=== PATIENT | female | born 1955 | race Caucasian/White ===

== ENCOUNTER 2018-04-01 09:03 | Emergency (ER) | payer BC ==
[2018-04-01 09:29] LABS: CHLORIDE,CL 105 mEq/L (98-106); SODIUM,NA 142 mEq/L (136-145)
[2018-04-01 09:38] VITALS: BP 144/86
--- NOTE | 2018-04-01 10:40 | EDM.PDOC ---
ED HPI GENERAL MEDICAL PROBLEM - General Chief Complaint: Neuro Symptoms/Deficits Stated Complaint: SCOTT, R) facial droop, R) eye twitching Time Seen by Provider: 04/01/18 09:12 Source of Information: Reports: Patient History Limitations: Reports: No Limitations - History of Present Illness INITIAL COMMENTS - FREE TEXT/NARRATIVE: Radha is a 63 yo female who presents to the ER after recommendation from co- workers with concerns of stroke like symptoms. Lucia states she started developing a headache to the right lower/posterior aspect of her head/neck on Friday night. She admits she wasn't able to get some sleep till around 4:00am after taking Tylenol and ibuprofen. She states she woke up yesterday morning with still ongoing headache. She went to work and ended up going home as the headache intensified. She was able to sleep from around noon till about 4:30 in the afternoon. She feels it did give her some relief and this morning the headache was a lot better. Co-workers noticed this morning she had a little bit of right sided drooping of lips. She admits her right eye has been watering a little bit as well and will twitch on occasion. She otherwise denies any unsteady gait, unilateral or bilateral upper or lower extremity weakness. Denies any confusion, loss of memory or any other neurological symptoms. States she has been under a lot of stress lately with her youngest son going thru a divorce. Location: Reports: Head Associated Symptoms: Reports: Headaches. Denies: Confusion, Fever/Chills, Nausea/Vomiting Treatments BAKER PASTRY: Reports: Acetaminophen, NSAIDS Headache Pain Score (Numeric/FACES): 3 - Related Data Allergies Allergy/AdvReac Type Severity Reaction Status Date / Time cefadroxil [From Duricef] Allergy Cannot Verified 04/01/18 09:03 Remember clarithromycin [From Biaxin] Allergy Cannot Verified 04/01/18 09:25 Remember codeine Allergy Cannot Verified 04/01/18 09:03 Remember Home Meds: Home Meds Inulin/Chromium Picolinate [Fiber Gummies] 1 tab PO DAILY 07/31/16 [History] Cholecalciferol (Vitamin D3) [Vitamin D3] 1,000 unit PO DAILY 08/02/16 [History] predniSONE [Prednisone] 40 mg PO DAILY 5 Days #10 tablet 04/01/18 [Rx] valACYclovir [Valtrex] 1,000 mg PO BID 7 Days #14 tablet 04/01/18 [Rx] Past Medical History HEENT History: Reports: Sinusitis Cardiovascular History: Reports: High Cholesterol Genitourinary History: Reports: Other (See Below) Other Genitourinary History: nocturia Musculoskeletal History: Reports: Arthritis, Other (See Below) Other Musculoskeletal History: osteopenia Endocrine/Metabolic History: Reports: Vitamin D Deficiency - Past Surgical History HEENT Surgical History: Reports: Tonsillectomy GI Surgical History: Reports: Cholecystectomy Female Surgical History: Reports: Hysterectomy, Tubal Ligation Oncologic Surgical History: Reports: Lumpectomy Social & Family History - Tobacco Use Smoking Status *Q: Never Smoker - Recreational Drug Use Recreational Drug Use: No ED ROS GENERAL - Review of Systems Review Of Systems: See Below Constitutional: Denies: Fever, Chills, Weakness HEENT: Reports: Eye Discharge (watering). Denies: Eye Pain, Sinus Problem, Vision Change Respiratory: Reports: No Symptoms Cardiovascular: Reports: No Symptoms GI/Abdominal: Reports: No Symptoms : Reports: No Symptoms Musculoskeletal: Reports: Neck Pain (chronic neck pain with calcifications). Denies: Muscle Stiffness Skin: Reports: No Symptoms. Denies: Rash Neurological: Reports: Headache. Denies: Confusion, Dizziness, Numbness, Paresthesia, Seizure, Tingling, Trouble Speaking, Difficulty Walking, Weakness, Change in Speech, Gait Disturbance ED EXAM, NEURO - Physical Exam Exam: See Below Exam Limited By: No Limitations General Appearance: Alert, No Apparent Distress Eye Exam: Right Eye: Other (right eye lid not completely closing), Bilateral Eye : EOMI, PERRL Ears: Normal External Exam, Normal Canal, Hearing Grossly Normal, Normal TMs Nose: Normal Inspection, Normal Mucosa, No Blood Throat/Mouth: Normal Inspection, Normal Lips, Normal Teeth, Normal Gums, Normal Oropharynx, Normal Voice, No Airway Compromise Head Exam: Atraumatic, Normocephalic Neck: Normal Inspection, Supple Respiratory/Chest: No Respiratory Distress, Lungs Clear, Normal Breath Sounds, No Accessory Muscle Use Cardiovascular: Normal Peripheral Pulses, Regular Rate, Rhythm, No Edema, No Murmur Neurological: Alert, Normal Mood/Affect, Oriented x 3, Other (slight drooping of right lip; diminished wrinkling of right forehead. No slurred speech. No extremity weakness. CN otherwise grossly intact. ). No: Abnormal Gait, Abnormal Sensation Extremities: Normal Inspection, Non-Tender, No Pedal Edema, Normal Capillary Refill Psychiatric: Normal Affect, Normal Mood Skin Exam: Warm, Dry, Intact, Normal Color, No Rash Course - Vital Signs Last Recorded V/S: Last Vital Signs Temp 97.1 F 04/01/18 09:06 Pulse 68 04/01/18 09:37 Resp 20 04/01/18 09:37 BP 144/86 H 04/01/18 09:37 Pulse Ox 98 04/01/18 09:37 - Orders/Labs/Meds Orders: Active Orders 24 hr Category Date Time Status Head wo Cont [CT] Stat Exams 04/01/18 08:59 Taken Labs: Laboratory Tests 04/01/18 04/01/18 04/01/18 Range/Units 09:10 09:10 09:10 WBC 5.3 (5.0-10.0) 10^3/uL RBC 4.29 (4.00-5.50) 10^6/uL Hgb 13.3 (12.0-16.0) g/dL Hct 40.2 (37.0-47.0) % MCV 93.7 (82.0-94.0) fL MCH 31.0 (27.0-32.0) pg MCHC 33.1 (33.0-38.0) g/dL RDW Coeff of Barak 12.6 (11.0-15.0) % Plt Count 253 (150-400) 10^3/uL Neut % (Auto) 36.7 (35-85) % Lymph % (Auto) 52.1 (10-55) % [place] % (Auto) 9.3 (0-16) % Eos % (Auto) 1.5 (0-5) % Baso % (Auto) 0.4 (0-3) % Neut # (Auto) 1.94 (1.80-7.00) 10^3/uL Lymph # (Auto) 2.75 (1.00-4.80) 10^3/uL [place] # (Auto) 0.49 (0.00-0.80) 10^3/uL Eos # (Auto) 0.08 (0.00-0.45) 10^3/uL Baso # (Auto) 0.02 10^3/uL PT 9.7 (9.7-12.3) SEC INR 0.93 (0.92-1.18) APTT 25.8 (23.2-32.3) SEC Sodium 142 (136-145) mEq/L Potassium 3.6 (3.5-5.0) mEq/L Chloride 105 (98-106) mEq/L Carbon Dioxide 29 (21-32) mmol/L BUN 18 (7-18) mg/dL Creatinine 0.9 (0.6-1.0) mg/dL Est Cr Clr Drug Dosing 51.26 mL/min Estimated GFR (MDRD) > 60 (>=60) mL/min Glucose 98 (75-99) mg/dL Calcium 9.0 (8.4-10.1) mg/dL Creatine Kinase 92 (21-215) U/L Troponin I < 0.017 (0.00-0.06) ng/mL Departure - Departure Time of Disposition: 10:55 Disposition: Home, Self-Care 01 Clinical Impression: Lott's palsy - Discharge Information Instructions: Lott Palsy, Adult Additional Instructions: 1) Prednisone 40mg daily for 5 days 2)Valacyclovir 1000mg twice a day for 7 days 3) Discussed CT results and Dr. Delcid recommended CTA of head and neck which we will wait on as discussed. However, again if symptoms worsen or any concerns at all, advise returning for reevaluation. 4) Rest today 5) Call if any questions or concerns as well [phone] - Problem List & Annotations (1) Lott's palsy SNOMED Code(s): 813107650 Code(s): G51.0 - LOTT'S PALSY Status: Acute - My Orders Last 24 Hours: My Active Orders 04/01/18 08:59 Head wo Cont [CT] Stat - Assessment/Plan Last 24 Hours: My Active Orders 04/01/18 08:59 Head wo Cont [CT] Stat Plan: Consulted with Dr. Delcid in regards to Lucia's care, as he is her primary physician. He recommended CTA of the head and neck secondary to patient history of untreated high cholesterol. I discussed this into detail with Lucia and she declined further imaging at this time. She will closely monitor. Will treat as Lott's Palsy with antiviral and steroids. Recommend if any concerns at all she needs to return to the ER. She verbalized understanding and was in agreement. EKG showed NSR and all laboratory findings were benign. NIHSS stroke scale was unremarkable with a score of 1 secondary to slight facial droop.
[2018-04-01] MEDS: methylPREDNISolone Sodium Succinate 125 MG/2 ML SDV IM ONE (10:48)
== END 2018-04-01 11:05 | disposition home or self-care (01) ==
LOC: CC.ED 09:03
DX: G51.0 Bell's palsy (principal); E78.00 Pure hypercholesterolemia, unspecified; Z79.4 Long term (current) use of insulin; Z79.899 Other long term (current) drug therapy; Z88.5 Allergy status to narcotic agent; Z88.1 Allergy status to other antibiotic agents; Z88.8 Allergy status to other drugs, medicaments and biological substances
CPT/HCPCS: 36415; 70450; 80048; 82550; 84484; 85025; 85610; 85730; 93005; 96372; 99284; J2930

== ENCOUNTER 2024-10-19 15:19 | Emergency (ER) | payer MEDICARE, BC ==
[2024-10-19 15:58] LABS: BASOPHILS ABSOLUTE AUTO 0.02 10^3/uL (0.00-0.50); BASOPHILS PERCENT AUTO 0.4 % (0-1); EOSINOPHILS ABSOLUTE AUTO 0.02 10^3/uL (0.00-1.50); EOSINOPHILS PERCENT AUTO 0.4 % (0-6); HEMOGLOBIN 13.2 g/dL (12.0-16.0); IMMATURE GRAN ABSOLUTE AUTO 0.02 10^3/uL (0.00-0.49); IMMATURE GRAN PERCENT AUTO 0.4 % (0.0-4.9); LYMPHOCYTES PERCENT AUTO 39.1 % (24-44); MEAN CORPUSCULAR HEMOGLOBIN 30.3 pg (27.0-32.0); MEAN CORPUSCULAR HGB CONC 33.8 g/dL (32.0-36.0); MEAN CORPUSCULAR VOLUME 89.7 fL (83.0-97.0); MONOCYTES ABSOLUTE AUTO 0.77 10^3/uL (0.00-1.50); MONOCYTES PERCENT AUTO 15.8 % (0-10); NEUTROPHILS ABSOLUTE AUTO 2.13 x10^3/uL (1.80-8.00); NEUTROPHILS PERCENT AUTO 43.9 % (41-71); PLATELET COUNT,PLT 217 10^3/uL (150-400); RED BLOOD CELL COUNT 4.35 x10^6/uL (4.00-5.50); WHITE BLOOD CELL COUNT,WBC 4.9 10^3/uL (4.0-11.0)
[2024-10-19 16:07] LABS: D-DIMER QUANTITATIVE 1.9 (0.00-0.50)
[2024-10-19 16:10] LABS: ALBUMIN 4.3 g/dL (3.4-5.0); BILIRUBIN TOTAL 0.4 mg/dL (0.0-1.0); CALCIUM 9.5 mg/dL (8.4-10.1); CREATININE 0.9 mg/dL (0.6-1.0); EST CRCL DRUG DOSING (CG) 47.32 mL/min; MAGNESIUM 2.2 mg/dL (1.8-2.4); POTASSIUM,K 3.9 mEq/L (3.5-5.0); PROTEIN TOTAL,TP 7.3 g/dL (6.4-8.2)
[2024-10-19] MEDS ORDERED: Naloxone 2 MG/2 ML Syringe IVPUSH PRN (16:18)
[2024-10-19 16:27] LABS: INR 0.99 (0.92-1.18); PROTHROMBIN TIME 10.4 SEC (9.3-11.3)
[2024-10-19] MEDS: fentaNYL 50 MCG/ML SDV IVPUSH ONE (16:27)
[2024-10-19] MEDS: Iopamidol 755 Mg/ML 100 ML Bottle IVPUSH ONE (16:34)
[2024-10-19 16:49] LABS: APPEARANCE,URINE CLEAR (CLEAR); BILIRUBIN,URINE NEGATIVE (NEGATIVE); COLOR,URINE YELLOW (YELLOW); GLUCOSE,URINE NEGATIVE (NEGATIVE); KETONES,URINE NEGATIVE (NEGATIVE); LEUKOCYTE ESTERASE,URINE SMALL (NEGATIVE); NITRITE,URINE NEGATIVE (NEGATIVE); OCCULT BLOOD,URINE NEGATIVE (NEGATIVE); PROTEIN,URINE NEGATIVE (NEGATIVE); UROBILINOGEN,URINE 0.2 EU/dL (0.2-1.0)
[2024-10-19 17:28] VITALS: BP 155/87; PULSE 77
[2024-10-19 17:35] LABS: RBC,URINE 0-5 /HPF (0-5); WBC,URINE 0-5 /HPF (0-5)
[2024-10-19] MEDS: Ketorolac 30 MG/ML SDV IVPUSH ONE (18:11)
== END 2024-10-19 18:45 | disposition home or self-care (01) ==
LOC: SUPCPDRO 15:19 → CC.ED 15:19
DX: R07.89 Other chest pain (principal); E78.00 Pure hypercholesterolemia, unspecified; Z88.8 Allergy status to other drugs, medicaments and biological substances; Z88.5 Allergy status to narcotic agent; Z79.4 Long term (current) use of insulin; Z90.49 Acquired absence of other specified parts of digestive tract; Z90.710 Acquired absence of both cervix and uterus
CPT/HCPCS: 36415; 71046; 71275; 74177; 80053; 81001; 83690; 83735; 84484; 85025; 85379; 85610; 85730; 87086; 93005; 93010; 96374; 96375; 99284; 99285-25; J1885; J3010; Q9967